=== PATIENT | male | born 1965 | race Caucasian/White ===

== ENCOUNTER 2021-11-07 08:13 | Inpatient (IN) | payer BC, SELFPAY ==
[2021-11-07] VITALS (7 sets, daily range): BP systolic 118–142; BP diastolic 66–105; PULSE 66–93; RESP 16–18; TEMP 36.2–36.7; O2SAT 94–98; BMI 34.0
--- NOTE | ~2021-11-07 | CT_ITS ---
EXAMINATION: CT abdomen pelvis w con INDICATION: Left upper quadrant pain, nausea and vomiting TECHNIQUE: Computed tomographic images of the abdomen and pelvis were obtained after the administrati on of 100 cc of Omnipaque 350 intravenous contrast. The dose-length product (DLP) was 1572.26 mGy-cm. Automated exposure control and iterative reconstruction technique were employed. COMPARISON: None available FINDINGS: Minimal dependent atelectasis is present in the lung bases. The heart size is normal. Mild bilateral gynecomastia is noted. The liver is diffusely low in attenuation when compared with the spl een, consistent with hepatic steatosis. The spleen, pancreas, gallbladder, and adrenal glands are nor mal. The right kidney is unremarkable. There are six nonobstructing stones of the left kidney which m easure up to 4 mm. No stones are identified in the ureters or bladder. There is no hydronephrosis or hydroureter. No pathologically enlarged abdominal or pelvic lymph nodes are identified. There are dil ated loops of small bowel with a transition point in the left mid abdomen beyond which the small martine l is decompressed. There is liquid stool throughout the colon to the level of the rectum. No free int raperitoneal gas is identified. IMPRESSION: 1. Small bowel obstruction. 2. Liquid stool in the colon, consistent with diarrhea. 3. Diffuse hepatic steatosis. 4. Nonobstructing left nephrolithiasis. Reviewed, dictated and finalized at location A. TECH LEAD
--- NOTE | ~2021-11-07 | XR_ITS ---
EXAMINATION: XR abdomen NG/feed tube insert INDICATION: Nasogastric tube placement TECHNIQUE: Portable AP KUB-NG at 1244 hours COMPARISON: CT from today FINDINGS: The nasogastric tube ends with its tip in the gastric antrum. Multiple dilated loops of sma ll bowel are again seen. There is mild atelectasis of the lung bases. IMPRESSION: 1. A nasogastric tube in the stomach. 2. Small bowel obstruction. Reviewed, dictated and finalized at location A. OPERATOR [employer]IN [employer]ANT
--- NOTE | ~2021-11-07 | XR_ITS ---
EXAMINATION: XR abdomen obstructive series EXAM DATE: 11/08/2021 06:37 INDICATION: Small bowel obstruction. Left lower quadrant pain. TECHNIQUE: Frontal upright projection of the upper abdomen, frontal projection of the lower abdomen f or interpretation. Correlation is made to CT from yesterday. FINDINGS: Feeding tube is in position, tip in region of gastric antrum, adequate. Multiple loops of moderate to severely distended air-filled small bowel again identified consistent with small bowel ob struction. No free intraperitoneal gas. Small to moderate amount of colonic gas and fluid. No basilar consolidation. There are mild bony degenerative changes. IMPRESSION: 1. Persistent small bowel obstruction. Small bowel and colonic gas and fluid. 2. Nasogastric tube in position. Reviewed, dictated and finalized at location B. LMER APPRENTICE
--- NOTE | ~2021-11-07 | XR_ITS ---
EXAMINATION: XR sm bowel follow through WS DATE: 11/09/2021 11:56 INDICATION: Small bowel obstruction. TECHNIQUE: Oral contrast was administered, and a time course of radiographs of the abdomen was obtain ed. Fluoroscopy of the small bowel was not performed. Fluoroscopy exposure time was 0 minutes. The to tacho number of images was 10. COMPARISON: CT abdomen and pelvis 11/07/2021 FINDINGS: The nasogastric tube tip is in the stomach. There are multiple dilated loops of proximal small bowel. The distal small bowel as decompressed. Transit time from the stomach to proximal colon was approxim ately 1.5 hours. IMPRESSION: 1. Persistently dilated proximal small bowel, consistent with partial small bowel obstruction. Reviewed, dictated and finalized at location A. OVER RIG OPERATOR IMPRESSION: 1. Persistently dilated proximal small bowel, consistent with partial small bow el obstruction.
--- NOTE | ~2021-11-07 | XR_ITS ---
EXAMINATION: XR abdomen obstructive series DATE: 11/09/2021 08:10 INDICATION: Partial small bowel obstruction TECHNIQUE: Frontal supine and upright views of the abdomen were obtained. COMPARISON: 11/08/2021 FINDINGS: Nasogastric tube tip in proximal side port in the body of the stomach. No significant change in sever al dilated gas-filled loops of small bowel consistent with obstruction. Small amount of gas scattered throughout the colon. No free intraperitoneal gas. Visualized lung bases are clear. IMPRESSION: 1. Persistent dilated gas-filled loops of small bowel consistent with small bowel obstruction. Reviewed, dictated and finalized at location A. CIRCULATING IMPRESSION: 1. Persistent dilated gas-filled loops of small bowel consistent with small maury wel obstruction.
[2021-11-07 08:49] LABS: Hematocrit 51.6 % (42.0-52.0); Hemoglobin 18.5 g/dL (14.0-18.0); Mean Corpuscular HGB Conc 35.9 g/dl (32-36); Mean Corpuscular Hemoglobin 29.4 pg (26-34); Mean Platelet Volume 9.6 fl (7.4-10.4); Platelet Count Result 296 k/mm3 (150-375); Red Blood Count 6.29 M/mm3 (4.6-6.20); Red Cell Distribution Width 12.9 % (11.5-14.5); White Blood Count 4.6 K/mm3 (4.5-10.0)
[2021-11-07] MEDS: SODIUM CHLORIDE 0.9% IV 1,000 ML 999 ML IV CONT (08:53)
--- NOTE | 2021-11-07 09:06 | PC.NURSE ---
Patient states he is unable to urinate at this time. Patient updated on the need of a urine specimen.
[2021-11-07 09:07] LABS: Alanine Aminotransferase 124 U/L (4-50); Alkaline Phosphatase 75 U/L (38-126); Anion Gap 11 mmol/L (8-16); Aspartate Amino Transferase 67 U/L (17-59); Blood Urea Nitrogen 28 mg/dL (9-20); Calcium 9.5 mg/dL (8.4-10.2); Carbon Dioxide 32 mmol/L (22-30); Chloride 90 mmol/L (98-107); Estimated CRCL calculation 93 ml/min; Estimated Glomerular Filt Rate > 60; Glucose 170 mg/dL (65-110); Lipase 36 U/L (23-300); Potassium 3.2 mmol/L (3.4-5.0); Sodium 133 mmol/L (137-145)
--- NOTE | 2021-11-07 09:07 | ED.NAVMDI ---
HPI - Nausea/Vomiting/Diarrhea General Chief complaint: Nausea/Vomiting/Diarrhea Stated complaint: N/V/D X3D Time Seen by Provider: 11/07/21 08:34 Source: patient and family Mode of arrival: ambulatory Limitations: no limitations History of Present Illness HPI Narrative: Patient complaining of nausea, vomiting and diarrhea for the last 3 days. Also complaining of left abdominal pain. Patient is not vaccinated for Covid. History of restless leg syndrome, intermittent smoking, intermittent to drinking alcohol, no drugs. Patient denies any fever or chills. Related Data Allergies Allergy/AdvReac Type Severity Reaction Status Date / Time No Known Allergies Allergy Verified 11/07/21 08:45 Review of Systems Review of Systems: CONSTITUTIONAL: Denies fever, chills, or sweats. EYES: Denies visual changes, redness, or discharge. ENT: Denies rhinorrhea, congestion, sore throat, or otalgia. CARDIOVASCULAR: Denies chest pain, palpitations, or edema. RESPIRATORY: Denies cough or dyspnea. GASTROINTESTINAL: Denies abdominal pain, nausea, vomiting, or diarrhea. GENITOURINARY: Denies dysuria or hematuria. SKIN: Denies rash or itching. MUSCULOSKELETAL: Denies back pain, joint pain, or myalgia. NEUROLOGIC: Denies headache, numbness, or weakness. PSYCHIATRIC: Denies anxiety or depression. Exam Narrative: General appearance: Well-developed, well-nourished, ill looking Skin: Normal color Head: Normocephalic, nontraumatic Eyes: Clear conjunctiva ENT: Oropharynx normal, ears normal, nose normal Neck: Supple, nontender Chest and respiratory: Airway patent, no respiratory distress, no accessory muscle use Heart: Regular rate/rhythm Abdomen: Soft, diffuse tenderness left abdomen, abdominal distention, no organomegaly, quiet bowel sounds Vascular: Normal peripheral pulses, normal capillary refill. Musculoskeletal: Normal range of motion, nontender back Neurologic: Alert and oriented ?3, PROJECT ADMINISTRATIVE ASSISTANT is normal as tested, no gross motor deficit Course Course Emergency Course: Stable Consultations Consultation #1: Rick Date: 11/07/21 Time: 10:57 Vital Signs Vital signs: Vital Signs Temperature 36.3 C L 11/07/21 08:22 Pulse Rate 74 11/07/21 08:22 Respiratory Rate 18 11/07/21 08:22 Blood Pressure 136/92 H 11/07/21 08:22 Pulse Oximetry 97 11/07/21 08:22 Temperature 36.3 C L 11/07/21 08:22 Pulse Rate 93 11/07/21 10:06 Respiratory Rate 18 11/07/21 10:06 Blood Pressure 142/105 H 11/07/21 10:06 Pulse Oximetry 98 11/07/21 10:06 MDM - Nausea/Vomiting/Diarrhea MDM Narrative Medical decision making narrative: Abdominal pain with aggressive vomiting and diarrhea. Labs, IV fluid, CT abdomen pelvis with IV contrast, IV Dilaudid and Zofran ordered Differential Diagnosis Differential diagnosis: Likely gastroenteritis, dehydration and other (Viral infection, bowel obstruction) Lab Data Result diagrams: 11/07/21 08:39 11/07/21 08:39 Labs: Lab Results 11/07/21 11/07/21 11/07/21 Range/Units 08:39 08:39 09:27 WBC 4.6 (4.5-10.0) K/mm3 RBC 6.29 H (4.6-6.20) M/mm3 Hgb 18.5 H (14.0-18.0) g/dL Hct 51.6 (42.0-52.0) % MCV 82.0 (80-100) fl MCH 29.4 (26-34) pg MCHC 35.9 (32-36) g/dl RDW 12.9 (11.5-14.5) % Plt Count 296 (150-375) k/mm3 MPV 9.6 (7.4-10.4) fl Immature Gran % (Auto) Not Reportable Neut % (Auto) Not Reportable Lymph % (Auto) Not Reportable Fannin % (Auto) Not Reportable Eos % (Auto) Not Reportable Baso % (Auto) Not Reportable Lymph # (Auto) Not Reportable Fannin # (Auto) Not Reportable Eos # (Auto) Not Reportable Baso
[2021-11-07 09:15] LABS: Band Neutrophils Percent 12 % (0-6); Lymphocytes Absolute Manual 0.82 K/mm3 (1.1-4.5); Monocytes Absolute Manual 0.32 K/mm3 (0.1-0.90); Monocytes Percent Manual 7 % (3-9); Neutrophils Absolute Manual 3.45 K/mm3 (1.3-6.7); Neutrophils Percent Manual 63 % (46-73); Total Cells Counted 100
[2021-11-07 09:16] LABS: Platelet Estimate Adequate (Adequate)
[2021-11-07 09:46] LABS: Add Urine Microscopic? YES; Amorphous Sediment Urine Few; Appearance Urine Cloudy (Clear); Bacteria Urine Trace /hpf; Bilirubin Urine Negative (Negative); Blood Urine Negative (Negative); Color Urine Yellow (Yellow); Glucose Urine UA Negative (Negative); Ketones Urine Negative (Negative); Leukocyte Esterase Ur Negative LEU/UL (Negative); Mucus Urine Few /lpf; Nitrate Urine Negative (Negative); Protein Urine 2+ mg/dL (Negative); Specific Grav Ur 1.018 (1.001-1.035); Squamous Epithelial Cell Urine Occasional /hpf (Few); Urobilinogen Urine Negative mg/dL (<2.0); WBC Urine 0-3 /hpf
[2021-11-07] MEDS: ONDANSETRON INJ 4 MG/2 ML VIAL IV PUSH (09:58)
[2021-11-07] MEDS: HYDROmorphone HCL INJ (*CRX) 1 MG/ML SYR 0.5 MG IV PUSH (09:58)
--- NOTE | 2021-11-07 11:27 | PM.IMHP ---
H&P: HPI History of Present Illness Date/Time: 11/07/21 11:27 Chief Complaint: n/v/d Narrative: Pt is a healthy 56-year-old male who presented emergency room on 11/07/2021 for nausea, vomiting and diarrhea. The patient states that he was in [place] on vacation and started throwing up and having diarrhea on . He said that night he had a fish dip and a sandwich from a gas station and then started feeling bad with nausea, vomiting and diarrhea all starting at the same time. He states no one else was sick. He also had upper quadrant abdominal pain that was pretty constant throughout all of this. He went to the pharmacy and took Pep to-Bismol, Imodium, and milk of magnesia to help with his symptoms. He didn't realize milk of magnesia was actually for constipation. Nevertheless, the patient has continued to have these symptoms for multiple days. He has not been able to keep anything down. He has liquid diarrhea with no blood or mucus. He has never had a history of small-bowel obstruction and has not had any abdominal surgeries. He does not take any narcotics or any other medications that can slow GI transit. He is not vaccinated against COVID and has not had COVID yet. His last colonoscopy was about 10 years ago and was normal. He drinks alcohol on occasion and smokes occasionally but nothing constant. He denies chest pain, shortness of breath, fevers, chills, leg swelling, hepatitis, or headaches. Review of Systems Review of Systems: All systems reviewed & are unremarkable except as noted in HPI and below PMFSH Past Medical History Medical History (Updated 11/07/21 @ 13:01 by Aimee Kramer PA-C) No pertinent past medical history Surgical History Surgical History (Updated 11/07/21 @ 12:55 by Aimee Kramer PA-C) No pertinent past surgical history Family History Family History (Updated 11/07/21 @ 12:56 by Aimee Kramer PA-C) Mother Healthy female Father Healthy adult male Social History Social History (Updated 11/07/21 @ 12:58 by Aimee Kramer PA-C) Social History: patient rarely drinks alcohol and does not do drugs. He occasionally smokes cigarettes on the weekends with his friends. He works as a electronic maintenance supervisor. he would like to be a full code. His surrogate decision maker is his Janeth Cabral Home Medications and Allergies Allergies Allergy/AdvReac Type Severity Reaction Status Date / Time No Known Allergies Allergy Verified 11/07/21 08:45 Vital Signs Vital Signs - 24 hr 11/07/21 08:22 11/07/21 10:06 Temperature 97.3 F L Pulse Rate 74 93 Respiratory Rate 18 18 Blood Pressure 136/92 H 142/105 H Pulse Oximetry 97 98 Exam Narrative: General:Well developed well nourished patient HEENT: Normocephalic, atraumatic, PERRL, Sclerae anicteric, NG intact Neck: Supple Resp: CTA Heart: RRR with no murmurs Abd: Soft, nondistended. Pain in the upper quadrants. No bowel sounds Skin: Warm and dry Extremities: No swelling, erythema or pain to palpation Neuro: Alert and Oriented x4 . CN 2-12 intact. No focal neurological deficits. H&P: Results Labs Labs: Short CBC 11/07/21 Range/Units 08:39 WBC 4.6 (4.5-10.0) K/mm3 Hgb 18.5 H (14.0-18.0) g/dL Hct 51.6 (42.0-52.0) % Plt Count 296 (150-375) k/mm3 BMP 11/07/21 08:39 Sodium 133 L Potassium 3.2 L Chloride 90 L Carbon Dioxide 32 H BUN 28 H Creatinine 1.10 Glucose 170 H Calcium 9.5 Liver Function 11/07/21 Range/Units 08:39 Total Bilirubin 1.0 (0.2-1.3) mg/dL AST 67 H (17-59) U/L ALT 124 H (4-50) U/L Alkaline Phosphatase 75 (38-126) U/L Albumin 5.0 (3.5-5.1) g/dL Urine 11/07/21 Range/Units 09:27 Urine Color Yellow (Yellow) Urine Appearance Cloudy H (Clear) Urine pH 7.0 (5.0-9.0) Ur Specific Roland 1.018 (1.001-1.035) Urine Protein 2+ H (Negative) mg/dL Urine Glucose (UA) Negative (Negative) mg/dL
[2021-11-07 13:01] LABS: EDCOVIDSCREEN Negative (Negative)
[2021-11-07] MEDS: KCL 20MEQ/0.9% SOD CHL 1,000 ML 150 ML IV CONT ×2 (14:04→20:46)
[2021-11-07] MEDS: PHENOL/SOD PHENO SPRAY CHERRY (*BKC) 1 SPRAY MUCOUS MEM (15:47)
--- NOTE | 2021-11-07 21:25 | PM.CNGS ---
Assessment and Plan Assessment and plan (1) Nausea vomiting and diarrhea: Onset Date: ~11/04/21 Code(s): R11.2 - Nausea with vomiting, unspecified; R19.7 - Diarrhea, unspecified Status: Acute Assessment and Plan: this is the main complaint for the patient. Workup in the emergency room revealed normal white blood cell count but slightly low sodium 133. Elevated glucose at 170. And a CT scan showing a possible partial small-bowel obstruction with a transition zone in the left mid abdomen. No obvious: Inflammation on the CT even though liquid stool was seen throughout the colon. (2) SBO (small bowel obstruction): Onset Date: Unknown Code(s): K56.609 - Unspecified intestinal obstruction, unspecified as to partial versus complete obstruction Status: Acute Assessment and Plan: CT suggests partial or complete small-bowel obstruction but symptoms suggest more likely small-bowel inflammation in the area causing partial small-bowel obstruction in view of his pain diarrhea and hyperactive bowel sounds. Will plan to repeat obstructive series of the abdomen for plain films in the a.m.. (3) Abdominal pain in male: Onset Date: ~11/05/21 Code(s): R10.9 - Unspecified abdominal pain Status: Acute Assessment and Plan: patient states that just before and when he vomited he often had left mid abdomen pain that was fairly severe. He states this is a beta it since NG tube placement and initial VAC UA shown of about 600 cc of fluid from the stomach. (4) Hyperglycemia: Code(s): R73.9 - Hyperglycemia, unspecified Status: Acute (5) Transaminitis: Code(s): R74.01 - Elevation of levels of liver transaminase levels Status: Acute (6) Hyponatremia: Code(s): E87.1 - Hypo-osmolality and hyponatremia Status: Acute (7) Hepatic steatosis: Onset Date: Unknown Code(s): K76.0 - Fatty (change of) liver, not elsewhere classified Status: Acute Assessment and Plan: Abnormal apparent on CT scan of his liver which most likely goes with his obesity. However, repeat liver function tests is appropriate in the set at this setting and we are planning a CBC CMP and some stool studies for overnight and tomorrow. History of Present Illness Consult details Consult date: 11/07/21 Reason for consult: abdominal pain Requesting physician: Marissa Rock MD Narrative: The patient is a healthy 56-year-old male who presented emergency room on 11/07/2021 for Abdominal pain, nausea, vomiting and diarrhea. The patient states that he was in [place] on vacation and started throwing up and having diarrhea on . He said that the night before he awoke sick he had a fish dip at lunch that every one else also ate (and didn't get sick) and then a [place] and cheese sandwich from a [employer] station. When asked he states he did not look at the out date on this sandwich. Then the following AM started feeling bad with nausea, vomiting and diarrhea all starting at the same time. He states no one else was sick. He also had upper quadrant abdominal pain that was pretty constant throughout all of this. He went to the pharmacy and took Pep to-Bismol, Imodium, and milk of magnesia to help with his symptoms. He didn't realize milk of magnesia was actually for constipation. Nevertheless, the patient has continued to have these symptoms for multiple days. He flew back to our area early today. He also complains that he had significant abdominal pain until the NG tube was placed in the ED and this was mainly in the left mid abdomen. He has not been able to keep anything down now for several days. He has liquid diarrhea with no blood or mucus. He has never had a history of small-bowel obstruction and has not had any abdominal surgeries. He does not take any narcotics or any other medications that can slow GI transit. He is not vaccinated against COVID and has not had CO
[2021-11-08] VITALS (7 sets, daily range): BP systolic 108–130; BP diastolic 64–78; PULSE 57–62; RESP 16–20; TEMP 36.1–36.4; O2SAT 95–98
[2021-11-08] MEDS: BENZOCAINE/MENTHOL (*BKC) 18 EA LOZENGE 1 LOZENGE PO (03:09)
[2021-11-08] MEDS: KCL 20MEQ/0.9% SOD CHL 1,000 ML 150 ML IV CONT ×3 (03:09→17:13)
[2021-11-08 06:36] LABS: Alanine Aminotransferase 79 U/L (4-50); Albumin Level 3.6 g/dL (3.5-5.1); Alkaline Phosphatase 55 U/L (38-126); Anion Gap 8 mmol/L (8-16); Aspartate Amino Transferase 41 U/L (17-59); Bilirubin,Total 0.7 mg/dL (0.2-1.3); Blood Urea Nitrogen 29 mg/dL (9-20); CRP 4.9 mg/dL (<1.0); Calcium 8.3 mg/dL (8.4-10.2); Carbon Dioxide 26 mmol/L (22-30); Chloride 105 mmol/L (98-107); Estimated CRCL calculation 93 ml/min; Estimated Glomerular Filt Rate > 60; Glucose 118 mg/dL (65-110); Magnesium 2.6 mg/dL (1.6-2.3); Potassium 3.7 mmol/L (3.4-5.0); Sodium 139 mmol/L (137-145)
[2021-11-08 06:43] LABS: Basophils Percent Auto 0.5 % (0.2-1.2); Eosinophils Absolute Auto 0.1 K/mm3 (0-0.3); Eosinophils Percent Auto 2.7 % (0-4.4); Hematocrit 44.3 % (42.0-52.0); Hemoglobin 14.8 g/dL (14.0-18.0); Immature Granulocyte Absolute 0.01 K/mm3 (0.00-0.031); Immature Granulocyte Percent A 0.2 % (0-0.5); Lymphocytes Absolute Auto 1.17 K/mm3 (0.9-3.2); Lymphocytes Percent Auto 28.5 % (18.3-44.2); Mean Corpuscular HGB Conc 33.4 g/dl (32-36); Mean Corpuscular Hemoglobin 28.7 pg (26-34); Mean Corpuscular Volume 85.9 fl (80-100); Mean Platelet Volume 9.7 fl (7.4-10.4); Monocytes Absolute Auto 0.5 K/mm3 (0.1-0.6); Monocytes Percent Auto 11.5 % (2.6-8.5); Neutrophils Absolute Auto 2.3 K/mm3 (1.3-6.7); Neutrophils Percent Auto 56.6 % (45.5-73.1); Platelet Count Result 232 k/mm3 (150-375); Red Blood Count 5.16 M/mm3 (4.6-6.20); Red Cell Distribution Width 13.2 % (11.5-14.5); White Blood Count 4.1 K/mm3 (4.5-10.0)
[2021-11-08 07:19] LABS: Hemoglobin A1C 5.6 % (<5.7)
[2021-11-08 07:32] LABS: Hepatitis B Surface Antigen Negative (Negative)
[2021-11-08 07:38] LABS: HAV RESULT Negative (Negative); Hepatitis B Core IgM Result Negative (Negative)
[2021-11-08 07:49] LABS: Hepatitis C Virus Antibody Negative (Negative)
--- NOTE | 2021-11-08 08:11 | PM.PNGS ---
Progress Note: A&P Assessment and Plan (1) SBO (small bowel obstruction): Onset Date: ~11/04/21 Code(s): K56.609 - Unspecified intestinal obstruction, unspecified as to partial versus complete obstruction Status: Acute Assessment and Plan: This appears to be resolving. Patient is having stools. My reading of the abdominal x-ray shows still some dilated loops of small bowel but lots of gas in the colon. Will consider clamping routine on NG later today since the patient feels well and is having stools. May still want to do a small-bowel follow-through tomorrow just to prove that the area of narrowing seen on CT has resolved. (2) Abdominal pain in male: Onset Date: ~11/05/21 Code(s): R10.9 - Unspecified abdominal pain Status: Acute Assessment and Plan: This appears to have resolved with NG decompression. (3) Nausea vomiting and diarrhea: Onset Date: ~11/04/21 Code(s): R11.2 - Nausea with vomiting, unspecified; R19.7 - Diarrhea, unspecified Status: Acute Assessment and Plan: Still having loose stools still stool studies pending. (4) Hyperglycemia: Code(s): R73.9 - Hyperglycemia, unspecified Status: Acute Assessment and Plan: resolved today's labs so probably was related to his acute illness ( question gastroenteritis). (5) Transaminitis: Code(s): R74.01 - Elevation of levels of liver transaminase levels Status: Acute Assessment and Plan: improved (6) Hepatic steatosis: Onset Date: Unknown Code(s): K76.0 - Fatty (change of) liver, not elsewhere classified Status: Acute Assessment and Plan: The patient will need to address this with his PCP. Would recommend low-fat diet weight loss. Time Spent With Patient Time with patient: less than 15 minutes Subjective Subjective Date/Time Seen: 11/08/21 08:11 Patient is sitting up in bed when I came in the room. I feel great I have no abdominal pain. States he has had 2 or 3 loose stools but they are beginning to a more solidify. ( overnight). He has been walking the hallways. He feels thirsty and somewhat hungry. NG tube is still irritating the back of his throat. He states that the redness in the drainage from the NG probably is the cheery color from the Cepacol lozenges. Review of Systems Review of Systems: All systems reviewed & are unremarkable except as noted in HPI and below Constitutional: Constitutional: Reports as per HPI, Denies chills and Denies fever(s) Cardiovascular: Cardiovascular: Denies chest pain and Denies dyspnea Respiratory: Respiratory: Reports no additional respiratory complaints and Denies dyspnea Gastrointestinal: Gastrointestinal: Reports as per HPI and Denies bloating Musculoskeletal: Musculoskeletal: Reports no additional musculoskeletal complaints Neurologic: Denies memory loss Psychiatric: Psychiatric: Denies anxiety and Denies memory loss Exam Const: General: cooperative, comfortable, alert and awake Orientation/consciousness: patient oriented x3 HENMT: Head: normal to inspection Mouth: Yes moist mucous membranes Eyes: Sclera: sclerae normal Pupils: Equal, round and reactive pupils present Neck: Neck: normal visual inspection and no JVD Chest: Chest palpation & inspection: normal inspection of the chest Resp: Effort & Inspection: normal respiratory effort Auscultation: clear to auscultation bilaterally GI: Inspection: normal to inspection, obesity and no scars GI Palp: Yes Soft to palpation and Yes Tenderness to palpation present (GI) (Minimal upper abdomen.) Auscultation: normal bowel sounds Neuro: General: patient oriented x3 Cranial nerves: Yes Equal, round and reactive pupils present Objective Data Vital Signs Vital Signs: Vital Signs - 24 hr 11/07/21 08:22 11/07/21 10:06 11/07/21 10:28 Temperature 36.3 C L 36.3 C L Pulse Rate 74 93 Respiratory Rate 18 18 Bl
--- NOTE | 2021-11-08 08:14 | PM.IMPN ---
Progress Note: A&P Assessment and Plan (1) SBO (small bowel obstruction): Onset Date: ~11/04/21 Code(s): K56.609 - Unspecified intestinal obstruction, unspecified as to partial versus complete obstruction Status: Acute Assessment and Plan: Symptoms and CT consistent with SBO -ng tube placed in the ER -awaiting morning xray, may consider clamping and removing NG if pt continues to improve and xray is better -no hx of abdominal surgeries, could be due to Imodium. there is a good chance this will improve on its own -surgery following -pain controlled (2) Nausea vomiting and diarrhea: Onset Date: ~11/04/21 Code(s): R11.2 - Nausea with vomiting, unspecified; R19.7 - Diarrhea, unspecified Status: Acute Assessment and Plan: Likely viral since pt has no leukocytosis or fevers -stool sample collected -cdiff less likely, no abx recently, no leukocytosis, no sick contacts -rapid covid negative (3) Acute hypokalemia: Code(s): E87.6 - Hypokalemia Status: Acute Assessment and Plan: Likely due to diarrhea and vomiting -resolved (4) Hepatic steatosis: Onset Date: Unknown Code(s): K76.0 - Fatty (change of) liver, not elsewhere classified Status: Acute Assessment and Plan: Noted on CT -would recommend weight loss (5) Polycythemia: Code(s): D75.1 - Secondary polycythemia Status: Acute Assessment and Plan: Resolved. Likely due to dehydration -monitor with labs -no bleeding suspected. pt has slightly red substance in the suction cup but it appears to be from his red cough drops he is sucking on (6) Hyponatremia: Code(s): E87.1 - Hypo-osmolality and hyponatremia Status: Acute Assessment and Plan: resolved with IV fluids (7) Transaminitis: Code(s): R74.01 - Elevation of levels of liver transaminase levels Status: Acute Assessment and Plan: Improving, no past labs since 2010 but at that time they were normal -likely due to acute illness -could be due to hepatic steatosis -no hepatitis on screen (8) Hyperglycemia: Code(s): R73.9 - Hyperglycemia, unspecified Status: Acute Assessment and Plan: Noted to be 170 on admission -a1c normal, hyperglycemia likely due to acute illness. Time Spent With Patient Time with patient: 25 - 35 minutes Subjective Date/time seen: 11/08/21 08:14 Interval history: Pt is a 56 y/o male here for SBO. Pt was seen today and feels much better compared to yesterday. He has not had any further nausea or vomiting. He has had 3 soft stools since midnight which is an improvement. No abdominal pain, sob, fevers, chills, or cp. He has been walking the halls with no issues. Review of Systems Review of Systems: All systems reviewed & are unremarkable except as noted in HPI and below Exam Narrative: General:Well developed well nourished patient HEENT: Normocephalic, atraumatic, PERRL, Sclerae anicteric, NG intact Neck: Supple Resp: CTA Heart: RRR with no murmurs Abd: Soft, nondistended. Pain in the upper quadrants. No bowel sounds Skin: Warm and dry Extremities: No swelling, erythema or pain to palpation Neuro: Alert and Oriented x4 . CN 2-12 intact. No focal neurological deficits. Objective Data Vital Signs Vital Signs: Vital Signs - 24 hr 11/07/21 08:22 11/07/21 10:06 11/07/21 10:28 Temperature 97.3 F L 97.3 F L Pulse Rate 74 93 Respiratory Rate 18 18 Blood Pressure 136/92 H 142/105 H Pulse Oximetry 97 98 11/07/21 14:09 11/07/21 15:00 11/07/21 20:00 Temperature 98.0 F Pulse Rate 92 66 66 Respiratory Rate 18 18 18 Blood Pressure 132/89 121/75 Pulse Oximetry 98 98 98 11/07/21 22:00 11/08/21 04:00 11/08/21 05:06 Temperature 97.2 F L 97.0 F L 97.0 F L Pulse Rate 68 57 L 57 L Respiratory Rate 16 16 16 Blood Pressure 118/66 108/67 108/67 Pulse Oximetry 94 95 95
[2021-11-08] MEDS: PANTOPRAZOLE SODIUM IV 40 MG VIAL IV PUSH (11:28)
--- NOTE | 2021-11-08 18:56 | PC.NURSE ---
Pt states he only takes his gabapentin when he has restless legs syndrome. He is not having those symptoms at this time & does not wish to take this medication. Pt ambulating in halls multiple times every 2-4 hours. Does not wish to take lovenox shot in the belly at this time.
[2021-11-09] VITALS: BP 117/72; PULSE 60; RESP 20; TEMP 36; O2SAT 97
[2021-11-09] MEDS: KCL 20MEQ/0.9% SOD CHL 1,000 ML 150 ML IV CONT ×2 (01:20→08:25)
[2021-11-09 03:27] VITALS: BP 103/67; PULSE 54; RESP 20; TEMP 36.4; O2SAT 96
[2021-11-09 03:28] VITALS: BP 103/67; PULSE 54; RESP 20; TEMP 35.9; O2SAT 96
[2021-11-09 05:29] LABS: Hematocrit 44.1 % (42.0-52.0); Hemoglobin 14.6 g/dL (14.0-18.0); Mean Corpuscular HGB Conc 33.1 g/dl (32-36); Mean Corpuscular Hemoglobin 28.7 pg (26-34); Mean Corpuscular Volume 86.6 fl (80-100); Mean Platelet Volume 9.8 fl (7.4-10.4); Platelet Count Result 220 k/mm3 (150-375); Red Blood Count 5.09 M/mm3 (4.6-6.20); Red Cell Distribution Width 12.9 % (11.5-14.5); White Blood Count 6.9 K/mm3 (4.5-10.0)
[2021-11-09 05:57] LABS: Alanine Aminotransferase 76 U/L (4-50); Albumin Level 3.8 g/dL (3.5-5.1); Alkaline Phosphatase 56 U/L (38-126); Anion Gap 9 mmol/L (8-16); Aspartate Amino Transferase 47 U/L (17-59); Blood Urea Nitrogen 22 mg/dL (9-20); Calcium 8.7 mg/dL (8.4-10.2); Carbon Dioxide 24 mmol/L (22-30); Chloride 105 mmol/L (98-107); Estimated CRCL calculation 102 ml/min; Estimated Glomerular Filt Rate > 60; Glucose 98 mg/dL (65-110); Potassium 4.1 mmol/L (3.4-5.0); Sodium 138 mmol/L (137-145)
[2021-11-09] MEDS: PANTOPRAZOLE SODIUM IV 40 MG VIAL IV PUSH (08:26)
[2021-11-09] MEDS: ENOXAPARIN 40 MG/0.4 ML SYRINGE SUB-Q (08:29)
--- NOTE | 2021-11-09 09:36 | PM.PNGS ---
Progress Note: A&P Assessment and Plan (1) SBO (small bowel obstruction): Onset Date: ~11/04/21 Code(s): K56.609 - Unspecified intestinal obstruction, unspecified as to partial versus complete obstruction Status: Acute Assessment and Plan: Clinically improving and bowels are moving, but plain films this morning still suggested small bowel obstruction. Gastrografin small bowel follow through ordered this morning. This showed contrast moving through to the colon at 1.5 hours, but persistently dilated small bowel, consistent with partial small bowel obstruction. Will remove NG tube and start clear liquids. (2) Nausea vomiting and diarrhea: Onset Date: ~11/04/21 Code(s): R11.2 - Nausea with vomiting, unspecified; R19.7 - Diarrhea, unspecified Status: Acute Assessment and Plan: Continues to have loose stools. Final stool studies pending. (3) Hepatic steatosis: Onset Date: Unknown Code(s): K76.0 - Fatty (change of) liver, not elsewhere classified Status: Acute (4) Transaminitis: Code(s): R74.01 - Elevation of levels of liver transaminase levels Status: Acute Assessment and Plan: Hepatitis panel negative. COVID negative. Monitor labs. Additional Plan I have discussed the patient's case and plan of care with Dr. Cabrera. Subjective Subjective Date/Time Seen: 11/09/21 09:36 Patient reports: no new complaints, feels better, flatus, diarrhea and afebrile Interval history: Patient seen and examined this morning. He denies any abdominal pain, nausea, or bloating today. He is ambulating in the room with his NG tube clamped now and reports feeling well. No other complaints at this time. He reports flatus and 5 loose bowel movements overnight and this morning. Review of Systems Review of Systems: All systems reviewed & are unremarkable except as noted in HPI and below Gastrointestinal: Gastrointestinal: Reports as per HPI and Reports no additional gastrointestinal complaints Exam Const: General: comfortable, no acute distress, alert and awake Orientation/consciousness: patient oriented x3 Resp: Effort & Inspection: normal respiratory effort Auscultation: clear to auscultation bilaterally Cardio: Rate: regular rate Rhythm: regular rhythm GI: Inspection: non-distended and obesity GI Palp: Yes Soft to palpation, No Tenderness to palpation present (GI), No Guarding due to palpation present (GI), Yes No hepatosplenomegaly present, No Hernia present and No Palpable mass present Percussion: Yes normal to percussion Auscultation: normal bowel sounds Rectal Exam: deferred Skin: General skin exam: normal color Neuro: General: moves all extremities and no focal motor deficits Extrem: General: normal to inspection and no calf tenderness Psych: Mental Status: mental status grossly normal Insight: Good insight present (Psych) Judgement: Good judgement present (Psych) Objective Data Vital Signs Vital Signs: Vital Signs - 24 hr 11/08/21 14:00 11/08/21 16:00 11/08/21 20:00 Temperature 97.6 F 97.6 F 97.3 F L Pulse Rate 62 61 59 L Respiratory Rate 16 16 20 Blood Pressure 122/68 126/64 130/78 Pulse Oximetry 98 98 98 11/08/21 20:57 11/09/21 00:00 11/09/21 03:27 Temperature 97.3 F L 96.8 F L 97.6 F Pulse Rate 59 L 60 54 L Respiratory Rate 20 20 20 Blood Pressure 130/78 117/72 103/67 Pulse Oximetry 98 97 96 11/09/21 03:28 Temperature 96.7 F L Pulse Rate 54 L Respiratory Rate 20 Blood Pressure 103/67 Pulse Oximetry 96 Intake/Output Intake/Output: Intake & Output 11/06/21 11/07/21 11/08/21 11/09/21 23:59 23:59 23:59 23:59 Intake Total 1999 5840 1000 Output Total 900 300 Balance 1999 4940 700 Meds/Results Medications: Active Medications Generic Name Dose Route Start Last Admin Trade Name Obinna PRN Reason Stop Dose Admin Benzocaine 1 lozenge 11/07/21 21:48 11/08/21 03:09 Benzocaine/Menthol (*Bkc) 18 Ea Lana
--- NOTE | 2021-11-09 10:44 | PM.IMPN ---
Progress Note: A&P Assessment and Plan (1) SBO (small bowel obstruction): Onset Date: ~11/04/21 Code(s): K56.609 - Unspecified intestinal obstruction, unspecified as to partial versus complete obstruction Status: Acute Assessment and Plan: Symptoms and CT consistent with SBO -ng tube placed in the ER -morning xray still showing SBO, sx is planning on doing a small bowel follow through today -no hx of abdominal surgeries, could be due to Imodium. There is a good chance this will improve on its own -surgery following -pain controlled (2) Nausea vomiting and diarrhea: Onset Date: ~11/04/21 Code(s): R11.2 - Nausea with vomiting, unspecified; R19.7 - Diarrhea, unspecified Status: Acute Assessment and Plan: Likely viral since pt has no leukocytosis or fevers -stool sample collected -cdiff less likely, no abx recently, no leukocytosis, no sick contacts -rapid covid negative (3) Acute hypokalemia: Code(s): E87.6 - Hypokalemia Status: Acute Assessment and Plan: Likely due to diarrhea and vomiting -resolved -decrease rate of IV fluids (4) Hepatic steatosis: Onset Date: Unknown Code(s): K76.0 - Fatty (change of) liver, not elsewhere classified Status: Acute Assessment and Plan: Noted on CT -would recommend weight loss (5) Polycythemia: Code(s): D75.1 - Secondary polycythemia Status: Acute Assessment and Plan: Resolved. Likely due to dehydration -monitor with labs (6) Hyponatremia: Code(s): E87.1 - Hypo-osmolality and hyponatremia Status: Acute Assessment and Plan: resolved with IV fluids (7) Transaminitis: Code(s): R74.01 - Elevation of levels of liver transaminase levels Status: Acute Assessment and Plan: Improving, no past labs since 2010 but at that time they were normal -likely due to acute illness -could be due to hepatic steatosis -no hepatitis on screen (8) Hyperglycemia: Code(s): R73.9 - Hyperglycemia, unspecified Status: Acute Assessment and Plan: Noted to be 170 on admission -a1c normal, hyperglycemia likely due to acute illness. Subjective Date/time seen: 11/09/21 10:44 Interval history: Pt is a 56 y/o male here for SBO. Pt was seen today and is feeling well. He has no abdominal pain, nausea, vomiting and has only 1 episode of soft stool. Exam Narrative: General:Well developed well nourished patient HEENT: Normocephalic, atraumatic, PERRL, Sclerae anicteric, NG intact Neck: Supple Resp: CTA Heart: RRR with no murmurs Abd: Soft, nondistended. Pain in the upper quadrants. No bowel sounds Skin: Warm and dry Extremities: No swelling, erythema or pain to palpation Neuro: Alert and Oriented x4 . CN 2-12 intact. No focal neurological deficits. Objective Data Vital Signs Vital Signs: Vital Signs - 24 hr 11/08/21 14:00 11/08/21 16:00 11/08/21 20:00 Temperature 97.6 F 97.6 F 97.3 F L Pulse Rate 62 61 59 L Respiratory Rate 16 16 20 Blood Pressure 122/68 126/64 130/78 Pulse Oximetry 98 98 98 11/08/21 20:57 11/09/21 00:00 11/09/21 03:27 Temperature 97.3 F L 96.8 F L 97.6 F Pulse Rate 59 L 60 54 L Respiratory Rate 20 20 20 Blood Pressure 130/78 117/72 103/67 Pulse Oximetry 98 97 96 11/09/21 03:28 Temperature 96.7 F L Pulse Rate 54 L Respiratory Rate 20 Blood Pressure 103/67 Pulse Oximetry 96 Intake/Output Intake/Output: Intake & Output 11/06/21 11/07/21 11/08/21 11/09/21 23:59 23:59 23:59 23:59 Intake Total 1999 5840 1000 Output Total 900 300 Balance 1999 4940 700 Meds/Results Medications: Active Medications Generic Name Dose Route Start Last Admin Trade Name Freq PRN Reason Stop Dose Admin Benzocaine 1 lozenge 11/07/21 21:48 11/08/21 03:09 Benzocaine/Menthol (*Bkc) 18 Ea Lozenge PO 1 lozenge PRN PRN Administration Sore Throat
[2021-11-09 14:00] VITALS: BP 124/78; PULSE 60; RESP 20; TEMP 36.4; O2SAT 99
[2021-11-09] MEDS: PRAMIPEXOLE 0.5 MG TABLET 1.5 MG PO (18:27)
[2021-11-09 19:38] VITALS: BP 123/71; PULSE 61; RESP 17; TEMP 36.6; O2SAT 97
[2021-11-09 20:00] VITALS: PULSE 61; RESP 17; O2SAT 97
[2021-11-09] MEDS: GABAPENTIN 300 MG CAPSULE PO (20:14)
[2021-11-09] MEDS: traZODone HCL 50 MG TABLET 100 MG PO (20:14)
[2021-11-10 03:33] VITALS: BP 117/69; PULSE 59; RESP 17; TEMP 37; O2SAT 97
[2021-11-10 06:32] LABS: Hematocrit 43.7 % (42.0-52.0); Hemoglobin 14.9 g/dL (14.0-18.0); Mean Corpuscular HGB Conc 34.1 g/dl (32-36); Mean Platelet Volume 9.8 fl (7.4-10.4); Platelet Count Result 224 k/mm3 (150-375); Red Blood Count 5.14 M/mm3 (4.6-6.20); Red Cell Distribution Width 12.7 % (11.5-14.5); White Blood Count 7.8 K/mm3 (4.5-10.0)
[2021-11-10 06:48] LABS: Alanine Aminotransferase 91 U/L (4-50); Albumin Level 4.1 g/dL (3.5-5.1); Alkaline Phosphatase 77 U/L (38-126); Anion Gap 11 mmol/L (8-16); Aspartate Amino Transferase 57 U/L (17-59); Bilirubin,Total 1.4 mg/dL (0.2-1.3); Blood Urea Nitrogen 17 mg/dL (9-20); CRP 3.2 mg/dL (<1.0); Calcium 9.3 mg/dL (8.4-10.2); Carbon Dioxide 21 mmol/L (22-30); Chloride 103 mmol/L (98-107); Estimated CRCL calculation 102 ml/min; Estimated Glomerular Filt Rate > 60; Glucose 125 mg/dL (65-110); Potassium 3.8 mmol/L (3.4-5.0); Sodium 135 mmol/L (137-145)
[2021-11-10] MEDS: PANTOPRAZOLE SODIUM IV 40 MG VIAL IV PUSH (08:29)
[2021-11-10] MEDS: ENOXAPARIN 40 MG/0.4 ML SYRINGE SUB-Q (08:29)
--- NOTE | 2021-11-10 10:01 | PM.DS ---
DS: Admitting Diagnosis Discharge Date 11/10/21 Admitting Diagnosis SBO DS: Discharge Diagnosis Discharge Diagnosis (1) SBO (small bowel obstruction): Onset Date: ~11/04/21 Code(s): K56.609 - Unspecified intestinal obstruction, unspecified as to partial versus complete obstruction Status: Acute Assessment and Plan: Symptoms and CT consistent with SBO -ng tube placed in the ER and was able to be removed when symptoms resolved -no hx of abdominal surgeries, could be due to Imodium -surgery on the case during hospitalization, no sx needed. (2) Nausea vomiting and diarrhea: Onset Date: ~11/04/21 Code(s): R11.2 - Nausea with vomiting, unspecified; R19.7 - Diarrhea, unspecified Status: Acute Assessment and Plan: Likely viral since pt has no leukocytosis or fevers -stool sample negative -cdiff less likely, no abx recently, no leukocytosis, no sick contacts -rapid covid negative (3) Acute hypokalemia: Code(s): E87.6 - Hypokalemia Status: Acute Assessment and Plan: Likely due to diarrhea and vomiting -resolved (4) Hepatic steatosis: Onset Date: Unknown Code(s): K76.0 - Fatty (change of) liver, not elsewhere classified Status: Acute Assessment and Plan: Noted on CT -would recommend weight loss (5) Polycythemia: Code(s): D75.1 - Secondary polycythemia Status: Acute Assessment and Plan: Resolved. Likely due to dehydration -monitor with labs (6) Hyponatremia: Code(s): E87.1 - Hypo-osmolality and hyponatremia Status: Acute Assessment and Plan: resolved with IV fluids (7) Transaminitis: Code(s): R74.01 - Elevation of levels of liver transaminase levels Status: Acute Assessment and Plan: Improving, no past labs since 2010 but at that time they were normal -likely due to acute illness -could be due to hepatic steatosis -no hepatitis on screen (8) Hyperglycemia: Code(s): R73.9 - Hyperglycemia, unspecified Status: Acute Assessment and Plan: Noted to be 170 on admission -a1c normal, hyperglycemia likely due to acute illness. DS: Summary Hospital Course Hospital Course: DOS 11/10/21 Pt is a healthy 56-year-old male who presented emergency room on 11/07/2021 for nausea, vomiting and diarrhea. The patient states that he was in [place] on vacation and started throwing up and having diarrhea on . He said that night he had a fish dip and a sandwich from a gas station and then started feeling bad with nausea, vomiting and diarrhea all starting at the same time. He states no one else was sick. He also had upper quadrant abdominal pain that was pretty constant throughout all of this. He went to the pharmacy and took Pep to-Bismol, Imodium, and milk of magnesia to help with his symptoms. He didn't realize milk of magnesia was actually for constipation. Nevertheless, the patient has continued to have these symptoms for multiple days. He has not been able to keep anything down. He has liquid diarrhea with no blood or mucus. He has never had a history of small-bowel obstruction and has not had any abdominal surgeries. He does not take any narcotics or any other medications that can slow GI transit. He is not vaccinated against COVID and has not had COVID yet. His last colonoscopy was about 10 years ago and was normal. He drinks alcohol on occasion and smokes occasionally but nothing constant. He denied chest pain, shortness of breath, fevers, chills, leg swelling, hepatitis, or headaches. CT in the ER showed a SBO. He was admitted to the hospitalist service and observed. He did well with conservative measures. Sx was consulted and did a GI follow through which showed the passage of the material. The day of discharge the pt's pain had resolved and was able to tolerate a diet. He was discharged in stable condition
--- NOTE | 2021-11-10 10:02 | PM.PNGS ---
Progress Note: A&P Assessment and Plan (1) SBO (small bowel obstruction): Onset Date: ~11/04/21 Code(s): K56.609 - Unspecified intestinal obstruction, unspecified as to partial versus complete obstruction Status: Acute Assessment and Plan: Clinically improving and bowels are moving. Gastrografin SBFT showed contrast moving through to the colon at 1.5 hours, but persistently dilated small bowel, consistent with partial small bowel obstruction. Okay to advance to full liquids today and discharge him home later today if he continues to tolerate his diet. We instructed the patient to follow a low fiber diet x 1 week after discharge and consulted the audiovisual librarian for education. He was encouraged to be cautious with advancing his diet and to call the office if he has any symptoms. Follow-up only as needed. (2) Nausea vomiting and diarrhea: Onset Date: ~11/04/21 Code(s): R11.2 - Nausea with vomiting, unspecified; R19.7 - Diarrhea, unspecified Status: Acute (3) Hepatic steatosis: Onset Date: Unknown Code(s): K76.0 - Fatty (change of) liver, not elsewhere classified Status: Acute (4) Transaminitis: Code(s): R74.01 - Elevation of levels of liver transaminase levels Status: Acute Assessment and Plan: F/u with PCP as an outpatient. Additional Plan I have discussed the patient's case and plan of care with Dr. Cabrera. Subjective Subjective Date/Time Seen: 11/10/21 09:32 Patient reports: no new complaints, tolerating liquids well, flatus, diarrhea and afebrile Interval history: Patient seen and examined this morning with Dr. Cabrera. He has no new complaints. He denies abdominal pain, nausea, vomiting, or bloating. He reports flatus and multiple liquid BMs following the Gastrografin study yesterday, but no more BMs since midnight. Tolerating clear liquids. Review of Systems Review of Systems: All systems reviewed & are unremarkable except as noted in HPI and below Gastrointestinal: Gastrointestinal: Reports as per HPI and Reports no additional gastrointestinal complaints Exam Const: General: comfortable, no acute distress, alert and awake Nutritional Appearance: obese Orientation/consciousness: patient oriented x3 GI: Inspection: non-distended and obesity GI Palp: Yes Soft to palpation, No Tenderness to palpation present (GI), No Guarding due to palpation present (GI) and No Rebound tenderness present Auscultation: normal bowel sounds Neuro: General: moves all extremities and no focal motor deficits Psych: Mental Status: mental status grossly normal Insight: Good insight present (Psych) Judgement: Good judgement present (Psych) Objective Data Vital Signs Vital Signs: Vital Signs - 24 hr 11/09/21 14:00 11/09/21 19:38 11/09/21 20:00 Temperature 97.6 F 97.8 F Pulse Rate 60 61 61 Respiratory Rate 20 17 17 Blood Pressure 124/78 123/71 Pulse Oximetry 99 97 97 11/10/21 03:33 Temperature 98.6 F Pulse Rate 59 L Respiratory Rate 17 Blood Pressure 117/69 Pulse Oximetry 97 Intake/Output Intake/Output: Intake & Output 11/07/21 11/08/21 11/09/21 11/10/21 23:59 23:59 23:59 23:59 Intake Total 1999 5840 1999 58 Output Total 438 209 2910 Balance 1999 9659 1600 -5130 Meds/Results Medications: Active Medications Generic Name Dose Route Start Last Admin Trade Name Freq PRN Reason Stop Dose Admin Benzocaine 1 lozenge 11/07/21 21:48 11/08/21 03:09 Benzocaine/Menthol (*Bkc) 18 Ea Lozenge PO 1 lozenge PRN PRN Administration Sore Throat Enoxaparin Sodium 40 mg 11/08/21 09:00 11/10/21 08:29 Enoxaparin 40 Mg/0.4 Ml Syringe SUB-Q 40 mg DAILY JORDAN Administration Gabapentin 300 mg 11/09/21 21:00 11/09/21 20:14 Gabapentin 300 Mg Capsule PO 300 mg HS JORDAN Administration Hydromorphone HCl 0.5 mg 11/07/21 13:08 Hydromorphone Hcl Inj (*Crx) 1 Mg/Ml Syr IV PUSH Q4H PRN pain 7-10 Ondansetron HCl
--- NOTE | 2021-11-10 11:21 | PCDIET ---
Nutritional consult for Low fiber 1 week, transition to heart healthy. See Nutritional Teaching Intervention. Thank you for the consult.
--- NOTE | 2021-11-16 10:43 | PC.NURSE ---
Salmonella and Shigella are both negative.
== END 2021-11-10 13:44 | disposition home or self-care (01) | DRG 389 ==
LOC: ANHED 10:56 → ANH2MED 18:52 → ANH3MEDSUR 11-11 14:52
PROVIDERS: Admitting Provider Internal Medicine; Emergency Provider Emergency Medicine; PCP Internal Medicine; Visit Provider Physician Assistant
DX: K56.600 Partial intestinal obstruction, unspecified as to cause (principal); E87.1 Hypo-osmolality and hyponatremia; B34.9 Viral infection, unspecified; K76.0 Fatty (change of) liver, not elsewhere classified; R74.01 Elevation of levels of liver transaminase levels; Z20.822 Contact with and (suspected) exposure to COVID-19; G25.81 Restless legs syndrome; E87.6 Hypokalemia; F17.210 Nicotine dependence, cigarettes, uncomplicated; D75.1 Secondary polycythemia; E86.0 Dehydration; R73.9 Hyperglycemia, unspecified; E66.9 Obesity, unspecified; Z68.34 Body mass index [BMI] 34.0-34.9, adult
CPT/HCPCS: 36415; 74019; 74177; 74250; 80048; 80053; 80074; 80076; 81001; 83036; 83690; 83735; 84443; 85025; 85027; 86140; 87045; 87426; 87427; 96361; 96374; 96375; 99285; A9270; C9113; C9803; J1170; J1650; J2405; J3480; J7030; Q9967